=== PATIENT | male | born 1955 | race Caucasian/White ===

== ENCOUNTER 2018-01-14 00:11 | Observation (INO) | payer OTHER ==
--- NOTE | 2018-01-11 16:55 | EKG ---
FACILITY: [facility] PATIENT NAME: EMMA AVINA : [id number] MR: [id number] V: [id number] EXAM DATE: ORDERING PHYSICIAN: CHRISTINE ARRINGTON TECHNOLOGIST: JOAQUIN Blake Reason : PRE-OP Blood Pressure : / mmHG Vent. Rate : 094 BPM Atrial Rate : 094 BPM P-R Int : 162 ms QRS Dur : 090 ms QT Int : 336 ms P-R-T Axes : 083 057 072 degrees QTc Int : 420 ms Sinus rhythm Nonspecific ST findings in the inferior leads Similar to previous Confirmed by MAX LUCAS ([id number]) on 01/12/2018 5:29:23 AM Referred By: LETICIA Confirmed By:MAX LUCAS
[2018-01-14] VITALS (19 sets, daily range): BP systolic 90–116; BP diastolic 51–81
[~2018-01-14] VITALS: Ht 172.7 cm; Wt 102.5 kg
[~2018-01-14 00:11] MED LIST: BUPR300T55 PO; CEPH500T7 PO; CIPR-214 PO; CIPR-344 PO; CLON-303 PO; CPAP; EMPA10TA PO; EZET1TAB53 PO; FEN145 PO; FENO160T11 PO; HYDR-4309 PO; IBUP200C71 PO; LANI SUBQ; MAGN250T26 PO; METF-421 PO; MODA200T6 PO; NICOTINE PATCH1 EACH TD; ONDA4TAB97 PO; SIMV-49 PO; SITA100T PO; TAMS0.4C25 PO; TEST1.25; VALS160T20 PO; VALS1TAB67 PO; [UNRECOGNIZED DRUG - CODE] PO
[2018-01-14] MEDS ORDERED: FAMOTIDINE 20 MG TAB PO ONE (06:45)
[2018-01-14] MEDS ORDERED: NORMOSOL R SOLN(*) 1000 ML BAG 1,000 ML IV PRN (06:45)
[2018-01-14] MEDS ORDERED: LIDOCAINE/SOD BICARB 8.4% SYR ID ONE (06:45)
[2018-01-14] MEDS ORDERED: LEVOFLOXACIN/D5W*500 MG/100 ML 100 ML IVPB ONE (06:45)
[2018-01-14] MEDS ORDERED: MIDAZOLAM 2 MG/2 ML VIAL IVP PRN (06:45)
[2018-01-14 06:50] LABS: PLATELET COUNT, AUTOMATED 190 K/uL (150-450)
[2018-01-14] MEDS ORDERED: MINERAL OIL LIGHT 10 ML VIAL ONE (07:04)
[2018-01-14] MEDS ORDERED: HYDROCORTISONE 1% CR 28.35 GM TP ONE (07:05)
[2018-01-14] MEDS ORDERED: fentaNYL CITR 100 MCG/2 ML AMP ONE (07:26)
[2018-01-14] MEDS ORDERED: ONDANSETRON 4 MG/2 ML VIAL ONE (07:26)
[2018-01-14] MEDS ORDERED: DEXAMETHASONE SOD 4 MG/ML VIAL ONE (07:26)
[2018-01-14] MEDS ORDERED: LIDOCAINE MPF 1% 5 ML VIAL ONE (07:26)
[2018-01-14] MEDS ORDERED: PROPOFOL EMUL(*) 10MG/ML 20 ML 20 ML ONE (07:26)
[2018-01-14] MEDS ORDERED: KETAMINE HCL 200 MG/20 ML MDV ONE (07:33)
[2018-01-14] MEDS ORDERED: INSULIN HUM REG 100 UN/ML 3 ML VIAL SC ONE ×2 (07:35→09:20)
[2018-01-14] MEDS ORDERED: DESFLURANE 240 ML BTL INH ONE (08:13)
[2018-01-14] MEDS ORDERED: GENTAMICIN 80 MG/2 ML VIAL ONE (08:15)
[2018-01-14] MEDS ORDERED: GLYCOPYRROLATE 0.2MG/ML 1 ML INJ ONE (09:20)
[2018-01-14] MEDS ORDERED: BELLADONNA ALK/OPIUM 60MG SUPP PR ONE (09:21)
[2018-01-14] MEDS ORDERED: PROPANTHELINE BROMIDE 15MG TAB PO PRN (09:35)
[2018-01-14] MEDS ORDERED: ONDANSETRON 4 MG/2 ML VIAL IVP PRN (09:35)
[2018-01-14] MEDS ORDERED: FLUSH 10 ML SYR IVP PRN (09:35)
[2018-01-14] MEDS ORDERED: NALOXONE HCL 0.4 MG/ML VIAL IVP PRN (09:35)
[2018-01-14] MEDS ORDERED: ZOLPIDEM TARTRATE 5 MG TAB PO PRN (09:35)
[2018-01-14] MEDS: HYDROmorphone PCA 6 MG/30 ML IV PRN ×2 (11:05→18:49)
[2018-01-14] MEDS: LR(*) 1000 ML BAG 1,000 ML IV PRN ×2 (11:06→19:57)
--- NOTE | 2018-01-14 12:27 | Hospitalist Consultation ---
History of Present Illness Requesting Physician Dr. Veras Reason for Consult Medical Management Chief Complaint s/p Prostate surgery History of Present Illness He was admitted s/p prostate surgery. It was reported the surgery went well and without complication. History Problems: (1) Type 2 diabetes mellitus Status: Chronic (2) Hypertension Status: Chronic (3) Hyperlipidemia Status: Chronic Home Meds Active Scripts Ciprofloxacin Hcl (CIPROFLOXACIN HCL) 500 Mg Tablet, 500 MG PO Q12H, #14 TAB Prov:KEV PETERS SECURITY SERVICES MANAGER 08/06/16 Reported Medications Cephalexin 500 Mg Tab (KEFLEX 500 MG TAB) 500 Mg Tablet, 500 MG PO BID, #28 TAB 01/13/18 Magnesium (MAGNESIUM) 250 Mg Tablet, 250 MG PO QDAY 01/07/18 Insulin Glargine (LANTUS) 100 Unit/Ml Soln, 15 UNIT SUBQ QHS, ML 01/07/18 Empagliflozin (Jardiance) 10 Mg Tablet, 10 MG PO QHS 01/07/18 [Cpap] (CPAP HOME) No Conflict Check 05/12/16 Ibuprofen (IBUPROFEN) 200 Mg Capsule, 1 CAP PO PRN, CAPSULE 05/12/16 TESTOSTERONE 1.62% Topical Gel (ANDROGEL 1.62% Topical Gel) 1.25 Gm Gel.packet 05/12/16 Tamsulosin Hcl (FLOMAX) 0.4 Mg Cap.er.24h, 0.4 MG PO DAILY, CAP 05/12/16 Modafinil (MODAFINIL) 200 Mg Tablet, 200 MG PO DAILY 05/12/16 Nicotine (NICOTINE PATCH) 1 Each Patch.td24, 3.5 MG TD DAILY 07/17/14 Simvastatin (SIMVASTATIN) 20 Mg Tablet, 20 MG PO HS, TAB 07/17/14 Fenofibrate (FENOFIBRATE) 160 Mg Tablet, 160 MG PO QDAY 07/17/14 Metformin Hcl (METFORMIN HCL) 1,000 Mg Tablet, 1 TAB PO BID TAKE ONE TABLET BY MOUTH TWO TIMES A DAY 07/17/14 Clonazepam (CLONAZEPAM) 1 Mg Tablet, 1 MG PO HS, #6 TAB 07/17/14 Sitagliptin Phosphate (JANUVIA) 100 Mg Tablet, 100 MG PO HS 07/17/14 Valsartan/Hydrochlorothiazide (DIOVAN HCT 160-12.5 MG TAB) 1 Each Tablet, 1 EACH PO DAILY 07/17/14 Allergies: Coded Allergies: Penicillins (Verified Allergy, Mild, PASS OUT, 08/06/16) citalopram (Verified Allergy, Mild, 08/06/16) Patient History: FH: heart disease FATHER Hx Smoking: Yes (quit 2007, smoked for 30 yrs 1/2 to 1 ppd) Smoking Status: Former Smoker Caffeine Intake: Soda Caffeine/Cups Per Day: DENIES Hx Alcohol Use: No Hx Substance Use Disorder: No Social Drug Use: Never Review of Systems All Systems Reviewed/Normal: Yes, Except as Noted Exam Vital Signs Vital Signs Date Time Temp Pulse Resp B/P (MAP) Pulse Ox O2 Delivery O2 Flow Rate FiO2 01/14/18 10:30 91 Nasal Cannula 2.0 01/14/18 10:26 98.0 76 12 103/69 (80) General Appearance: Alert, Awake, No Acute Distress, Afebrile Neuro: No Gross deficits Cardiovascular: Regular Rate and Rhythm Respiratory: No Respiratory Distress, Clear to Auscultation Psych: Alert & Oriented X3, Appropriate Mood & Affect Medical Decision Making Data Points Result Diagram: 01/14/18 0640 Assessment and Plan Problems: (1) Prostate disorder Status: Acute Assessment & Plan: s/p prostate surgery. Followed by Dr. Veras. (2) Type 2 diabetes mellitus Status: Chronic Assessment & Plan: He is on chronic treatment with Metformin, Jardiance, Januvia, and Lantus. He will be started on ADA diet, AC/ HS sugars, Lantus and SS Insulin #2. (3) Hypertension Status: Chronic Assessment & Plan: He is on chronic treatment with Valsartan and Hydrochlorothiazide. He will be restarted on Valsartan with hold parameters. (4) Hyperlipidemia Status: Chronic Assessment & Plan: He is on chronic treatment with Simvastatin. Venous Thromboembolism Antithrombotics Is Pt On Any Antithrombotics?: No Prophylaxis Tx Contraindicated Pharmacological Contraindicati: Surgical Contraindication Exam Sepsis Risk: No Definite Risk Problem Qualifiers (1) Hypertension: Hypertension type: essential hypertension Qualified Codes: I10 - Essential ( primary) hypertension ALMA DELIA AMESP January 14, 2018 12:27
[2018-01-14] MEDS ORDERED: GLYCOPYRROLATE 0.2MG/ML 1 ML INJ IVP PRN (13:30)
--- NOTE | 2018-01-14 15:02 | OPERATIVE REPORT 1 ---
EVENT DATE: January 14, 2018 SURGEON: Charbel Veras MD ANESTHESIOLOGIST: Carlitos Rubalcava MD ANESTHESIA: General anesthetic. PREOPERATIVE DIAGNOSES 1. Outlet obstruction of the prostate gland. 2. Chronic cystoprostatitis. POSTOPERATIVE DIAGNOSES 1. Outlet obstruction of the prostate gland. 2. Chronic cystoprostatitis. 3. Calculus prostatitis. 4. Vesicolithiasis. PROCEDURES PERFORMED 1. Cystourethroscopy. 2. Transurethral resection of the prostate. 3. Vaporization of the prostate. 4. Vesical litholapaxy of multiple prostate and bladder calculi, greater than 50. DESCRIPTION OF PROCEDURE Under general anesthetic, the patient was prepped and draped in the extended lithotomy position. The 21 panendoscope was admitted through the urethra into the bladder. Multiple calculi were evident in the ducts of the prostatic urethra, as well as the stones were in the bladder. Trigone and ureteral orifices were normal. No bloody efflux from either in the orifice. No other bladder lesions. Bladder filled under gravity flow. It was measured to a total of approximately 600 mL. On drainage of the bladder, there was no bloody drainage. On re-inspection of the bladder, there were no glomerulations. The resection was begun by resecting the median lobe back to the verumontanum. The tissue was resected down to the circular fibers at the bladder neck circumferentially. Right and left lateral lobe tissue was resected. Apical tissue was resected at the conclusion of the procedure. During the procedure, multiple calculi were unroofed posteriorly, mostly at the left posterior apical area and then the right base of the prostate. All the stones were irrigated into the bladder. The prostate calculi in addition to the bladder calculi were evacuated satisfactorily and sent as a separate specimen. The prostate tissue was sent in a separate container as well. The entire prostate capsule was vaporized. Bleeding appeared to be satisfactorily controlled. Estimated blood loss less than 100 mL. The calculi and the prostate tissue appeared to be evacuated from the bladder. The bladder was filled under gravity flow. On removal of the resectoscope sheath, there was good efflux of irrigation fluid that cut out almost immediately upon withdrawal of the scope. A #22 three-way Fair was placed per urethra into the bladder. Irrigation was satisfactory at conclusion of the procedure. Patient tolerated the procedure satisfactorily and returned to the recovery room in satisfactory condition. This is a 62-year-old white male complaining of recurrent cystoprostatitis. In order to be maintained infection free for any periods of time, he needs to be on low-dose antibiotic, Keflex or other antibiotic. Patient is also on Flomax twice a day to relieve his obstructive uropathy issue. Options were discussed several times with the patient and his in the office in addition to preoperative. Patient opted for cystoscopy and treatment as indicated for relief of his obstructive problem as related to the prostate or otherwise. The option of continued Flomax and suppressive antibiotic therapy was also discussed with the patient versus doing nothing. Patient subsequently had his evaluation and treatment. See operative note for details. Patient will be ready for discharge home in the a.m. is all is going well, to force fluids 2 L per day. Activities are restricted to careful ambulation. He is to continue his usual medications as prescribed by Dr. Conner and/or the hospitalists. Patient will be discharged home on Cipro, Pepcid, Pyridium, Colace, and [employer] therapy. Plan followup in the office and catheter removal probably on Thursday. A copy of the instructions will be given to the patient. MAYANK
[2018-01-14] MEDS: GENTAMICIN/NS 80 MG/100 ML PB 100 ML IVPB SCH ×2 (16:49→23:50)
[2018-01-14] MEDS: INSULIN HUM LISPRO 100 UN/ML 3 ML VIAL SUBQ PRN ×2 (17:45→21:10)
[2018-01-14] MEDS ORDERED: BELLADONNA ALK/OPIUM 60MG SUPP PR PRN (21:00)
[2018-01-14] MEDS: VALSARTAN 80 MG TAB PO SCH (21:00)
[2018-01-14] MEDS ORDERED: SIMVASTATIN 20 MG TAB PO SCH (21:00)
[2018-01-14] MEDS ORDERED: INSULIN GLARGINE 100 U/ML 3 ML PEN SUBQ SCH (21:00)
[2018-01-14] MEDS: DOCUSATE SODIUM 100 MG CAP PO SCH (21:08)
[2018-01-14] MEDS: NEOMYCIN/POLYMYX/BACITR OINT 1 PACKET TP SCH (21:08)
[2018-01-14] MEDS: FAMOTIDINE 20 MG TAB PO SCH (21:08)
[2018-01-15] MEDS: LR(*) 1000 ML BAG 1,000 ML IV PRN (05:05)
[2018-01-15 05:15] VITALS: BP 108/73
[2018-01-15 07:04] VITALS: BP 107/74
[2018-01-15] MEDS: GENTAMICIN/NS 80 MG/100 ML PB 100 ML IVPB SCH (07:18)
[2018-01-15] MEDS: INSULIN HUM LISPRO 100 UN/ML 3 ML VIAL SUBQ PRN (07:19)
[2018-01-15] MEDS ORDERED: LEVOFLOXACIN 500 MG TAB PO SCH (08:00)
[2018-01-15] MEDS ORDERED: metFORMIN HCL 500 MG TAB PO SCH (08:00)
[2018-01-15] MEDS: FAMOTIDINE 20 MG TAB PO SCH (08:32)
[2018-01-15] MEDS: VALSARTAN 80 MG TAB PO SCH (08:32)
[2018-01-15] MEDS: DOCUSATE SODIUM 100 MG CAP PO SCH (08:33)
[2018-01-15] MEDS: NEOMYCIN/POLYMYX/BACITR OINT 1 PACKET TP SCH (08:33)
[2018-01-15] MEDS ORDERED: TAMSULOSIN HCL 0.4 MG CAP PO SCH (09:00)
--- NOTE | 2018-01-15 10:31 | Hospitalist Progress Note ---
Subjective Progress Notes Subjective He had no acute events overnight. He reports he is ready to go home. Patient Complains of: Cardiovascular: No: Chest Pain Respiratory: No: Shortness of Breath Physical Exam Vital Signs Date Time Temp Pulse Resp B/P (MAP) Pulse Ox O2 Delivery O2 Flow Rate FiO2 01/15/18 09:12 16 94 Nasal Cannula 2.0 01/15/18 07:04 98.2 61 107/74 (85) Intake and Output 01/16/18 01:00 Intake Total 4190 ml Output Total 4750 ml Balance -560 ml Intake Oral 1340 ml Other 2850 ml Output Urine Total 1900 ml Other 2850 ml General Appearance: Alert, Awake, No Acute Distress, Afebrile Neuro: No Gross deficits Cardiovascular: Regular Rate and Rhythm Respiratory: No Respiratory Distress, Clear to Auscultation Psych: Alert & Oriented X3, Appropriate Mood & Affect Result Diagram: 01/14/18 0640 Assessment and Plan Problems: (1) Prostate disorder Status: Acute Assessment & Plan: s/p prostate surgery. Followed by Dr. Veras. (2) Type 2 diabetes mellitus Status: Chronic Assessment & Plan: He is on chronic treatment with Metformin, Jardiance, Januvia, and Lantus. (3) Hypertension Status: Chronic Assessment & Plan: He is on chronic treatment with Valsartan and Hydrochlorothiazide. He will check his blood pressure at home and resume medications if his systolic is above 130. (4) Hyperlipidemia Status: Chronic Assessment & Plan: He is on chronic treatment with Simvastatin. (5) Hypoxia Status: Acute Assessment & Plan: Recommended patient to wear oxygen 24 hours daily. He verbalized understanding for the need for oxygen. He reports he has concentrator and portable tanks through [email or web address] already at home. Exam Sepsis Risk: No Definite Risk Problem Qualifiers (1) Hypertension: Hypertension type: essential hypertension Qualified Codes: I10 - Essential ( primary) hypertension ALMA DELIA AMES January 15, 2018 10:31
[2018-01-15] MEDS ORDERED: HYDR-4308 PO (10:33)
[2018-01-15] MEDS ORDERED: FAMO20TA28 PO (10:35)
[2018-01-15] MEDS ORDERED: PHEN200T32 PO (10:46)
[2018-01-15] MEDS ORDERED: DOCU-416 PO (10:46)
== END 2018-01-15 10:48 | disposition home or self-care (01) ==
LOC: OR 00:11 → MED 10:49
DX: N40.0 Benign prostatic hyperplasia without lower urinary tract symptoms (principal); E11.9 Type 2 diabetes mellitus without complications; G47.33 Obstructive sleep apnea (adult) (pediatric); N42.0 Calculus of prostate
CPT/HCPCS: 36416; 52317; 52648; 81001; 82365; 82948; 85025; 87088; 88300; 88305; 93005; 96372; A4346; G0378; J1100; J1170; J1580; J1815; J1956; J2001; J2250; J2405; J2704; J3010; J3490; J7120

== ENCOUNTER 2018-01-17 21:30 | Inpatient (IN) | payer OTHER ==
[~2018-01-17] VITALS: Ht 172.7 cm; Wt 103.9 kg
[~2018-01-17 21:30] MED LIST changes: +DOCU-416 PO; +FAMO20TA28 PO; +HYDR-4308 PO; +PHEN200T32 PO
[2018-01-17] MEDS ORDERED: NS(*) 0.9% 1000 ML BAG 1,000 ML IV ONE (21:32)
--- NOTE | 2018-01-17 21:32 | ER Report ---
History and Physical Time Seen By MD: 21:31 HPI/ROS CHIEF COMPLAINT: Fever HISTORY OF PRESENT ILLNESS: 62-year-old male status post prostate surgery . He was admitted overnight and discharged home on 01/15/18. Patient's been running low-grade fevers up to 100 at home. He has been on Keflex. He contacted Dr. Eda mendoza and was sent in with a fever for further evaluation. Dr. Veras contacted the ER attending physician in notified him that the patient will be coming in for evaluation for postoperative fever and that he would likely consider admission and IV Rocephin and gentamicin for infection control. REVIEW OF SYSTEMS: Respiratory: No cough, no dyspnea. Cardiovascular: No chest pain, no palpitations. Gastrointestinal: No vomiting, no abdominal pain. Musculoskeletal: No back pain. Allergies: Coded Allergies: Penicillins (Verified Allergy, Mild, PASS OUT, 08/06/16) citalopram (Verified Allergy, Mild, 08/06/16) Home Meds Active Scripts Ciprofloxacin Hcl (CIPROFLOXACIN HCL) 500 Mg Tablet, 500 MG PO Q12H, #14 TAB Prov:FRANKEV SENIOR BACKUP ADMINISTRATOR 08/06/16 Reported Medications Phenazopyridine Hcl (PHENAZOPYRIDINE HCL) 200 Mg Tablet, 200 MG PO BID, TAB 01/17/18 Insulin Glargine 100 Un/Ml Pen (LANTUS SOLOSTAR PEN) 100 Unit/1 Ml Insuln.pen, 15 UNIT SQ QDAY, ML 01/17/18 Docusate Sodium (COLACE) 100 Mg Capsule, 100 MG PO BID, #30 CAPSULE 01/15/18 Famotidine (PEPCID) 20 Mg Tablet, 20 MG PO BID, #20 TAB 01/15/18 Hydrocodone Bit/Acetaminophen (NORCO 7.5-325 TABLET) 1 Each Tablet, 1 EACH PO Q4 -6H Y for PAIN, #30 01/15/18 Magnesium (MAGNESIUM) 250 Mg Tablet, 250 MG PO QDAY 01/07/18 Empagliflozin (Jardiance) 10 Mg Tablet, 10 MG PO QDAY 01/07/18 [Cpap] (CPAP HOME) No Conflict Check 05/12/16 Ibuprofen (IBUPROFEN) 200 Mg Capsule, 1 CAP PO PRN, CAPSULE 05/12/16 TESTOSTERONE 1.62% Topical Gel (ANDROGEL 1.62% Topical Gel) 1.25 Gm Gel.packet 05/12/16 Tamsulosin Hcl (FLOMAX) 0.4 Mg Cap.er.24h, 0.4 MG PO DAILY, CAP 05/12/16 Modafinil (MODAFINIL) 200 Mg Tablet, 200 MG PO DAILY 05/12/16 Nicotine (NICOTINE PATCH) 1 Each Patch.td24, 3.5 MG TD DAILY 07/17/14 Simvastatin (SIMVASTATIN) 20 Mg Tablet, 20 MG PO HS, TAB 07/17/14 Fenofibrate (FENOFIBRATE) 160 Mg Tablet, 160 MG PO QDAY 07/17/14 Metformin Hcl (METFORMIN HCL) 1,000 Mg Tablet, 1 TAB PO BID TAKE ONE TABLET BY MOUTH TWO TIMES A DAY 07/17/14 Clonazepam (CLONAZEPAM) 1 Mg Tablet, 1 MG PO HS, #6 TAB 07/17/14 Sitagliptin Phosphate (JANUVIA) 100 Mg Tablet, 100 MG PO HS 07/17/14 Valsartan/Hydrochlorothiazide (DIOVAN HCT 160-12.5 MG TAB) 1 Each Tablet, 1 EACH PO DAILY 07/17/14 Discontinued Reported Medications Phenazopyridine Hcl (PHENAZOPYRIDINE HCL) 200 Mg Tablet, 200 MG PO TID Y for SPASMS, #20 TAB 01/15/18 Cephalexin 500 Mg Tab (KEFLEX 500 MG TAB) 500 Mg Tablet, 500 MG PO BID, #28 TAB 01/13/18 Insulin Glargine (LANTUS) 100 Unit/Ml Soln, 15 UNIT SUBQ QHS, ML 01/07/18 Past Medical/Surgical History Type II diabetes, BPH, hyperlipidemia, hypertension Reviewed Nurses Notes: Yes Old Medical Records Reviewed: Yes Hx Smoking: Yes (quit 2007, smoked for 30 yrs 1/2 to 1 ppd) Smoking Status: Former Smoker Hx Substance Use Disorder: No Hx Alcohol Use: No Constitutional Vital Sign - Last 24 Hours 01/17/18 01/17/18 01/17/18 01/17/18 21:34 21:35 21:35 21:38 Temp 98.8 99.4 Pulse 74 Resp 16 B/P (MAP) 152/86 (108) 152/86 Pulse Ox 92 O2 Delivery Room Air O2 Flow Rate 3.0 01/17/18 01/17/18 01/17/18 01/17/18 21:45 21:51 22:00 22:15 Pulse 79 76 73 B/P (MAP) 137/83 (101) Pulse Ox 94 93 93 01/17/18 01/17/18 01/17/18 01/17/18 22:20 22:45 23:00 23:05 Pulse 71 66 B/P (MAP) 133/78 (96) 136/75 (95) Pulse Ox 93 93 01/17/18 01/17/18 01/17/18 01/17/18 23:10 23:25 23:33 23:40 Pulse 67 68 64 B/P (MAP) 127/76 (93) Pulse Ox 94 94 93 Physical Exam Vital signs stable, temp 99.4, pulse ox on 2 L stable General Appearance: The patient is alert, has no immediate need for airway protection and no current signs of toxicity. Slightly pale appearing, skin warm and dry HEENT: Pupils equal and round no injection. Oropharynx without redness or exudate, mucous. Membranes are moist Respiratory: Chest is non tender, lungs are clear to auscultation. Cardiac: regular rate and rhythm Gastrointestinal: Abdomen is soft and non tender, no masses, bowel sounds normal. Musculoskeletal: Neck: Neck is supple and non tender. Extremities have full range of motion and are non tender. Skin: No rashes or lesions. DIFFERENTIAL DIAGNOSIS: After history and physical exam differential diagnosis was considered for adult fever including but not limited to viral syndromes including influenza, urinary tract infection, postoperative infection, pneumonia and sepsis. Medical Decision Making Data Points Result Diagram: 01/17/18214801/17/182148 Laboratory Hematology Test 01/17/18 21:49 01/17/18 22:50 Red Blood Count 4.90 M/uL (4.00-5.60) Mean Corpuscular Volume 92.8 fL (80.0-96.0) Mean Corpuscular Hemoglobin 32.0 pg (26.0-33.0) Mean Corpuscular Hemoglobin Concent 34.5 g/dL (32.0-36.0) Red Cell Distribution Width 13.6 % (11.5-14.5) Mean Platelet Volume 8.2 fL (7.2-11.1) Neutrophils (%) (Auto) 71.7 % (39.4-72.5) Lymphocytes (%) (Auto) 10.9 % (17.6-49.6) Monocytes (%) (Auto) 10.3 % (4.1-12.4) Eosinophils (%) (Auto) 6.7 % (0.4-6.7) Basophils (%) (Auto) 0.4 % (0.3-1.4) Nucleated RBC Relative Count (auto) 0.1 /100WBC Neutrophils # (Auto) 8.7 K/uL (2.0-7.4) Lymphocytes # (Auto) 1.3 K/uL (1.3-3.6) Monocytes # (Auto) 1.2 K/uL (0.3-1.0) Eosinophils # (Auto) 0.8 K/uL (0.0-0.5) Basophils # (Auto) 0.0 K/uL (0.0-0.1) Nucleated RBC Absolute Count (auto) 0.01 K/uL Sodium Level 140 mmol/L (137-145) Potassium Level 3.9 mmol/L (3.5-5.0) Chloride Level 100 mmol/L (98-107) Carbon Dioxide Level 25 mmol/L (22-30) Blood Urea Nitrogen 21 mg/dl (9-21) Creatinine 1.70 mg/dl (0.66-1.25) Glomerular Filtration Rate Calc 41.0 Random Glucose 157 mg/dl (75-110) Lactate 1.2 mmol/L (0.7-2.1) Calcium Level 10.1 mg/dl (8.4-10.2) Total Bilirubin 0.8 mg/dl (0.2-1.3) Aspartate Amino Transf (AST/SGOT) 33 U/L (0-35) Alanine Aminotransferase (ALT/SGPT) 35 U/L (0-56) Alkaline Phosphatase 58 U/L (0-126) C-Reactive Protein 5.2 mg/dl (<1.0) Total Protein 7.0 gm/dl (6.3-8.2) Albumin 4.2 g/dl (3.5-5.0) Urine Color Apison Urine Clarity Cloudy Urine pH Color interference Urine Specific Hudson Color interference Urine Protein Color interference Urine Glucose (UA) Color interference Urine Ketones Color interference Urine Blood Color interference Urine Nitrite Color interference Urine Bilirubin Color interference Urine Urobilinogen Color interference Urine Leukocyte Esterase Color interference Urine RBC 250 /HPF (0-2/HPF) Urine WBC 283 /HPF (0-5/HPF) Urine WBC Clumps Few /HPF Urine Squamous Epithelial Cells Few /LPF (</=FEW) Urine Amorphous Crystals Few /HPF Urine Bacteria Moderate /HPF (NONE-FEW) Urine Mucus None /HPF (NONE-FEW) Chemistry Test 01/17/18 21:49 01/17/18 22:50 White Blood Count 12.1 k/uL (4.5-11.0) Red Blood Count 4.90 M/uL (4.00-5.60) Hemoglobin 15.7 g/dL (14.0-18.0) Hematocrit 45.4 % (42.0-52.0) Mean Corpuscular Volume 92.8 fL (80.0-96.0) Mean Corpuscular Hemoglobin 32.0 pg (26.0-33.0) Mean Corpuscular Hemoglobin Concent 34.5 g/dL (32.0-36.0) Red Cell Distribution Width 13.6 % (11.5-14.5) Platelet Count 183 K/uL (150-450) Mean Platelet Volume 8.2 fL (7.2-11.1) Neutrophils (%) (Auto) 71.7 % (39.4-72.5) Lymphocytes (%) (Auto) 10.9 % (17.6-49.6) Monocytes (%) (Auto) 10.3 % (4.1-12.4) Eosinophils (%) (Auto) 6.7 % (0.4-6.7) Basophils (%) (Auto) 0.4 % (0.3-1.4) Nucleated RBC Relative Count (auto) 0.1 /100WBC Neutrophils # (Auto) 8.7 K/uL (2.0-7.4) Lymphocytes # (Auto) 1.3 K/uL (1.3-3.6) Monocytes # (Auto) 1.2 K/uL (0.3-1.0) Eosinophils # (Auto) 0.8 K/uL (0.0-0.5) Basophils # (Auto) 0.0 K/uL (0.0-0.1) Nucleated RBC Absolute Count (auto) 0.01 K/uL Glomerular Filtration Rate Calc 41.0 Lactate 1.2 mmol/L (0.7-2.1) Calcium Level 10.1 mg/dl (8.4-10.2) Total Bilirubin 0.8 mg/dl (0.2-1.3) Aspartate Amino Transf (AST/SGOT) 33 U/L (0-35) Alanine Aminotransferase (ALT/SGPT) 35 U/L (0-56) Alkaline Phosphatase 58 U/L (0-126) C-Reactive Protein 5.2 mg/dl (<1.0) Total Protein 7.0 gm/dl (6.3-8.2) Albumin 4.2 g/dl (3.5-5.0) Urine Color Apison Urine Clarity Cloudy Urine pH Color interference Urine Specific Hudson Color interference Urine Protein Color interference Urine Glucose (UA) Color interference Urine Ketones Color interference Urine Blood Color interference Urine Nitrite Color interference Urine Bilirubin Color interference Urine Urobilinogen Color interference Urine Leukocyte Esterase Color interference Urine RBC 250 /HPF (0-2/HPF) Urine WBC 283 /HPF (0-5/HPF) Urine WBC Clumps Few /HPF Urine Squamous Epithelial Cells Few /LPF (</=FEW) Urine Amorphous Crystals Few /HPF Urine Bacteria Moderate /HPF (NONE-FEW) Urine Mucus None /HPF (NONE-FEW) Urinalysis Test 01/17/18 22:50 Urine Color Apison Urine Clarity Cloudy Urine pH Color interference Urine Specific Hudson Color interference Urine Protein Color interference Urine Glucose (UA) Color interference Urine Ketones Color interference Urine Blood Color interference Urine Nitrite Color interference Urine Bilirubin Color interference Urine Urobilinogen Color interference Urine Leukocyte Esterase Color interference Urine RBC 250 /HPF (0-2/HPF) Urine WBC 283 /HPF (0-5/HPF) Urine WBC Clumps Few /HPF Urine Squamous Epithelial Cells Few /LPF (</=FEW) Urine Amorphous Crystals Few /HPF Urine Bacteria Moderate /HPF (NONE-FEW) Urine Mucus None /HPF (NONE-FEW) Microbiology Microbiology Date/Time Source Procedure Growth Status 01/17/18 22:50 Blood Peripheral Draw Blood Culture - Preliminary NO GROWTH AFTER 1 DAY, REINCUBATED Resulted 01/17/18 21:49 Blood Peripheral Draw Blood Culture - Preliminary NO GROWTH AFTER 1 DAY, REINCUBATED Resulted ED Course/Re-evaluation Clinical Indication for ER IV: IV Access ED Course Patient was admitted to an examination room. H&P was done. The differential diagnoses was considered. Patient feeling fatigued with low-grade fevers and chills for 2 days. Patient notes fever to 100.0 at home. Patient was sent in by Dr. Veras. Patient was pancultured. A chest x-ray was clear. His white blood cell counts only 12,000. Differential shows 72 segs, no bands. 01/17/2018 11:51:29 pm case was discussed with Dr. Veras on-call urologist, who advises admit for IV antibiotics Rocephin 2 g IV every 24 and gentamicin 80 mg IV every 8. He advised hospitalist be involved for management of diabetes and other medical issues. Decision to Disposition Date: January 17, 2018 Decision to Disposition Time: 23:57 Depart Departure Latest Vital Signs Vital Signs Date Time Temp Pulse Resp B/P (MAP) Pulse Ox O2 Delivery O2 Flow Rate FiO2 01/17/18 23:40 64 93 01/17/18 23:33 127/76 (93) 01/17/18 21:38 99.4 01/17/18 21:35 16 Room Air 01/17/18 21:35 3.0 Impression: Primary Impression: Postoperative fever Additional Impressions: Type II diabetes mellitus Hypertension Sleep apnea Condition: Improved Disposition: Admitted from ER Referrals: STEPHANIE RUDOLPH DO (PCP) Problem Qualifiers Additional Impressions: Type II diabetes mellitus Diabetes mellitus bed bug exterminator insulin use: with halfway use Diabetes mellitus complication status: without complication Qualified Codes: E11.9 - Type 2 diabetes mellitus without complications; Z79.4 - bed bug exterminator (current) use of insulin Hypertension Hypertension type: essential hypertension Qualified Codes: I10 - Essential ( primary) hypertension Sleep apnea Sleep apnea type: unspecified type Qualified Codes: G47.30 - Sleep apnea, unspecified EVELYN WHITFIELD DO January 17, 2018 21:32
[2018-01-17] MEDS ORDERED: INSU100I30 SQ (22:03)
[2018-01-17 22:04] LABS: PLATELET COUNT, AUTOMATED 183 K/uL (150-450)
[2018-01-17] MEDS ORDERED: PHEN200T32 PO (22:10)
--- NOTE | 2018-01-17 23:00 | RADIOLOGY IMAGING REPORT ---
FACILITY: [facility] PATIENT NAME: Ambrose Fagan : 1955 MR: [id number] V: [id number] EXAM DATE: ORDERING PHYSICIAN: EVELYN WHITFIELD TECHNOLOGIST: Location: [facility] [place] Patient: Ambrose Fagan : 1955 Visit/Account:[id number] Date of Sevice: 01/17/2018 CHEST SINGLE AP 01/17/2018 21:32 hours. HISTORY: Fever. Prostate surgery 01/14/2018. Former smoker. COMPARISON: 08/06/2016 and studies dating to 06/09/2008. TECHNIQUE: Portable AP view of the chest. FINDINGS: Tubes/lines/hardware: None. Pulmonary: Right lung is clear. There is subsegmental left basilar atelectasis or scarring, unchanged . There is no pneumothorax or pleural effusion. Cardiomediastinal: Cardiac and mediastinal silhouettes are within normal limits. Bones/soft tissues: No acute osseous abnormality. The visible abdomen is normal. IMPRESSION: 1. Stable chest without acute process. Report Dictated By: Isabel Teague at 01/17/2018 10:55 PM Report E-Signed By: Isabel Teague at 01/17/2018 10:56 PM WSN:[id number]
[2018-01-17] MEDS ORDERED: cefTRIAXone(*) 2 GM VIAL 2 GM in NS(*) 0.9% 100 ML ADDVANT BAG 100 ML IVPB ONE (23:45)
[2018-01-17] MEDS ORDERED: cefTRIAXone 2 GM VIAL ONE (23:49)
[2018-01-17] MEDS ORDERED: GENTAMICIN(*) 80 MG/2 ML VIAL 160 MG in NS(*) 0.9% 100 ML BAG 100 ML IVPB ONE (23:55)
[2018-01-17] MEDS ORDERED: NS(*) 0.9% 100 ML ADDVANT BAG 0 ML ONE (23:56)
[2018-01-18] VITALS (7 sets, daily range): BP systolic 104–147; BP diastolic 67–86; Ht 172.7 cm; Wt 103.9 kg
[2018-01-18] MEDS ORDERED: FLUSH 10 ML SYR IVP PRN (01:10)
[2018-01-18] MEDS ORDERED: [UNRECOGNIZED DRUG - OTHER] IVPB SCH (02:00)
[2018-01-18] MEDS ORDERED: GENTAMICIN IVPB SCH (02:00)
[2018-01-18] MEDS ORDERED: GENTAMICIN 80 MG/2 ML VIAL ONE (02:23)
[2018-01-18] MEDS ORDERED: NS(*) 0.9% 100 ML BAG 100 ML ONE (02:23)
[2018-01-18] MEDS ORDERED: NS(*) 0.9% 500 ML BAG 500 ML ONE (02:28)
--- NOTE | 2018-01-18 05:55 | Hospitalist Progress Note ---
Subjective Progress Notes Subjective Patient known to the Hospitalist Service from his recent admission following his recent TURP. Reviewed PMHx (type 2 DM, SHLOMO) and his medications. Physical Exam Vital Signs Date Time Temp Pulse Resp B/P (MAP) Pulse Ox O2 Delivery O2 Flow Rate FiO2 01/18/18 02:39 98.9 68 16 110/67 (81) 94 Nasal Cannula 2.0 General Appearance: Alert, Awake Cardiovascular: Regular Rate and Rhythm Respiratory: Clear to Auscultation Result Diagram: 01/17/18214801/17/182148 Assessment and Plan Problems: (1) Type II diabetes mellitus Status: Chronic Assessment & Plan: Will continue his usual regimen of Lantus, metformin, Januvia, and Jardiance. Place on ADA diet. Watch glucoses and use SSI as needed. (2) Sleep apnea Status: Chronic Assessment & Plan: Will continue his CPAP. Exam Sepsis Risk: No Definite Risk Problem Qualifiers (1) Type II diabetes mellitus: Diabetes mellitus manager terminal insulin use: with manager terminal use Diabetes mellitus complication status: without complication Qualified Codes: E11.9 - Type 2 diabetes mellitus without complications; Z79.4 - extermination supervisor (current) use of insulin (2) Sleep apnea: Sleep apnea type: unspecified type Qualified Codes: G47.30 - Sleep apnea, unspecified MAX LUCAS MD January 18, 2018 05:55
[2018-01-18] MEDS: MODAFINIL 100 MG TAB PO SCH (09:50)
[2018-01-18] MEDS: HYDROCHLOROTHIAZIDE 25 MG TAB PO SCH (09:50)
[2018-01-18] MEDS: metFORMIN HCL 500 MG TAB PO SCH ×2 (09:50→16:49)
[2018-01-18] MEDS: VALSARTAN 80 MG TAB PO SCH (09:50)
[2018-01-18] MEDS: INSULIN GLARGINE 100 U/ML 3 ML PEN SQ SCH (09:52)
[2018-01-18] MEDS: INSULIN HUM LISPRO 100 UN/ML 3 ML VIAL SUBQ PRN ×3 (12:09→20:47)
[2018-01-18] MEDS: GENTAMICIN IVPB SCH (14:46)
[2018-01-18] MEDS: NS 0.9% IVPB SCH (14:46)
[2018-01-18] MEDS: PHENAZOPYRIDINE 200 MG TAB PO PRN (18:43)
[2018-01-18] MEDS: SIMVASTATIN 20 MG TAB PO SCH (20:46)
[2018-01-18] MEDS: FAMOTIDINE 20 MG TAB PO SCH (20:46)
[2018-01-18] MEDS: DOCUSATE SODIUM 100 MG CAP PO SCH (20:46)
[2018-01-18] MEDS ORDERED: CEFTRIAXONE IVPB SCH (23:00)
[2018-01-18] MEDS ORDERED: D5W IVPB SCH (23:00)
[2018-01-18] MEDS: KETOROLAC TROM 10MG TAB PO PRN (23:18)
[2018-01-18] MEDS: cefTRIAXone(*) 2 GM VIAL 2 GM in NS(*) 0.9% 100 ML ADDVANT BAG 100 ML IVPB SCH (23:25)
[2018-01-19] MEDS: GENTAMICIN IVPB SCH ×2 (02:01→14:26)
[2018-01-19] MEDS: NS 0.9% IVPB SCH ×2 (02:01→14:26)
[2018-01-19 03:21] VITALS: BP 90/56
[2018-01-19 07:52] VITALS: BP 106/66
--- NOTE | 2018-01-19 08:59 | Hospitalist Progress Note ---
Subjective Progress Notes Subjective He has no complaints this morning. He had no acute events overnight. Patient Complains of: Cardiovascular: No: Chest Pain Respiratory: No: Shortness of Breath Physical Exam Vital Signs Date Time Temp Pulse Resp B/P (MAP) Pulse Ox O2 Delivery O2 Flow Rate FiO2 01/19/18 07:52 98.7 58 14 106/66 (79) 91 CPAP 3.0 General Appearance: Alert, Awake, No Acute Distress, Afebrile Neuro: No Gross deficits Cardiovascular: Regular Rate and Rhythm Respiratory: No Respiratory Distress, Clear to Auscultation GI: Soft and Non-Tender Psych: Alert & Oriented X3, Appropriate Mood & Affect Result Diagram: 01/17/18214801/17/182148 Assessment and Plan Problems: (1) Type II diabetes mellitus Status: Chronic Assessment & Plan: Will continue his usual regimen of Lantus, metformin, Januvia, and Jardiance. Place on ADA diet. Watch glucoses and use SSI as needed. (2) Sleep apnea Status: Chronic Assessment & Plan: Will continue his CPAP. Exam Sepsis Risk: No Definite Risk Problem Qualifiers (1) Type II diabetes mellitus: Diabetes mellitus watermaster insulin use: with watermaster use Diabetes mellitus complication status: without complication Qualified Codes: E11.9 - Type 2 diabetes mellitus without complications; Z79.4 - middle or intermediate school principal (current) use of insulin (2) Sleep apnea: Sleep apnea type: unspecified type Qualified Codes: G47.30 - Sleep apnea, unspecified ALMA DELIA AMES GOLF CADDIE January 19, 2018 08:59
[2018-01-19] MEDS: MODAFINIL 100 MG TAB PO SCH ×2 (09:00→09:15)
[2018-01-19] MEDS: FAMOTIDINE 20 MG TAB PO SCH ×2 (09:13→21:28)
[2018-01-19] MEDS: metFORMIN HCL 500 MG TAB PO SCH ×2 (09:15→17:18)
[2018-01-19] MEDS: DOCUSATE SODIUM 100 MG CAP PO SCH ×2 (09:15→21:28)
[2018-01-19] MEDS: VALSARTAN 80 MG TAB PO SCH (09:15)
[2018-01-19] MEDS: HYDROCHLOROTHIAZIDE 25 MG TAB PO SCH (09:15)
[2018-01-19] MEDS: INSULIN GLARGINE 100 U/ML 3 ML PEN SQ SCH (09:16)
[2018-01-19] MEDS: INSULIN HUM LISPRO 100 UN/ML 3 ML VIAL SUBQ PRN ×4 (09:17→21:28)
[2018-01-19 14:29] VITALS: BP 145/79
[2018-01-19] MEDS: PHENAZOPYRIDINE 200 MG TAB PO PRN (17:18)
[2018-01-19] MEDS: KETOROLAC TROM 10MG TAB PO PRN (18:18)
[2018-01-19 18:41] VITALS: BP 149/82
[2018-01-19] MEDS: SIMVASTATIN 20 MG TAB PO SCH (21:28)
[2018-01-19 23:41] VITALS: BP 128/85
[2018-01-19] MEDS: cefTRIAXone(*) 2 GM VIAL 2 GM in NS(*) 0.9% 100 ML ADDVANT BAG 100 ML IVPB SCH (23:43)
[2018-01-20] MEDS: NS 0.9% IVPB SCH (02:20)
[2018-01-20] MEDS: GENTAMICIN IVPB SCH (02:20)
[2018-01-20 02:23] VITALS: BP 105/58
[2018-01-20] MEDS ORDERED: SULF-198 PO (06:55)
[2018-01-20 07:15] VITALS: BP 115/72
[2018-01-20] MEDS: FAMOTIDINE 20 MG TAB PO SCH (08:31)
[2018-01-20] MEDS: DOCUSATE SODIUM 100 MG CAP PO SCH (08:31)
[2018-01-20] MEDS: metFORMIN HCL 500 MG TAB PO SCH (08:31)
[2018-01-20] MEDS: MODAFINIL 100 MG TAB PO SCH (08:32)
[2018-01-20] MEDS: VALSARTAN 80 MG TAB PO SCH (08:32)
[2018-01-20] MEDS: HYDROCHLOROTHIAZIDE 25 MG TAB PO SCH (08:32)
[2018-01-20] MEDS: INSULIN GLARGINE 100 U/ML 3 ML PEN SQ SCH (08:32)
--- NOTE | 2018-01-20 08:45 | Hospitalist Progress Note ---
Subjective Progress Notes Subjective He has no concerns this morning. He reports improvement in urinary symptoms. Patient Complains of: Cardiovascular: No: Chest Pain Respiratory: No: Shortness of Breath Physical Exam Vital Signs Date Time Temp Pulse Resp B/P (MAP) Pulse Ox O2 Delivery O2 Flow Rate FiO2 01/20/18 07:15 98.4 49 18 115/72 (86) 88 Room Air 01/19/18 07:52 3.0 General Appearance: Alert, Awake, No Acute Distress, Afebrile Neuro: No Gross deficits Cardiovascular: Regular Rate and Rhythm Respiratory: No Respiratory Distress, Clear to Auscultation GI: Soft and Non-Tender Psych: Alert & Oriented X3, Appropriate Mood & Affect Result Diagram: 01/17/18214801/17/182148 Assessment and Plan Problems: (1) Type II diabetes mellitus Status: Chronic Assessment & Plan: Will continue his usual regimen of Lantus, metformin, Januvia, and Jardiance. (2) Sleep apnea Status: Chronic Assessment & Plan: Will continue his CPAP. Exam Sepsis Risk: No Definite Risk Problem Qualifiers (1) Type II diabetes mellitus: Diabetes mellitus fci insulin use: with intermediate accountant use Diabetes mellitus complication status: without complication Qualified Codes: E11.9 - Type 2 diabetes mellitus without complications; Z79.4 - petroleum terminal plant operator (current) use of insulin (2) Sleep apnea: Sleep apnea type: unspecified type Qualified Codes: G47.30 - Sleep apnea, unspecified ALMA DELIA AMES [employer]ACH[employer] ROUTER January 20, 2018 08:45
--- NOTE | 2018-01-20 16:39 | DISCHARGE SUMMARY ---
ADMISSION DIAGNOSES 1. Acute cysto-prostatitis. 2. Possible urosepsis. 3. Status postoperative transurethral resection of the prostate and vaporization of the prostate. DISCHARGE DIAGNOSES 1. Acute cysto-prostatitis. 2. Possible urosepsis. 3. Status postoperative transurethral resection of the prostate and vaporization of the prostate. 4. No clear evidence of urosepsis based on blood cultures at this time. Urine culture shows significant growth. Sensitivities are pending. CONDITION ON DISCHARGE Improved. SUMMARY This is a 62-year-old white male complaining of outlet obstruction of the prostate gland, history of acute and chronic cysto-prostatitis resistant to several antibiotics. I was unable to keep patient free of infection off antibiotics, so he has been maintained on suppressive cephalexin therapy for several months prior to his hopefully definitive treatment with transurethral resection of the infected glands, etc. Patient subsequently had procedure this past and did well at that time. He was instructed on Fair removal Thursday a.m. and that was accomplished. He has been voiding satisfactorily. On Thursday, his called and said he was chilling and had fever. I suspected an infection resistant to the oral antibiotic Cipro that he was discharged on. That appears to be confirmed. Sensitivities are currently pending. Currently patient is significantly improved. It took more than 24-48 hours to resolve his fever and chills. The Rocephin and gentamicin therapy appeared to be resolving the issue. Patient will be discharged home today if we have sensitivities for an oral agent to treat him as an outpatient. If there is no oral agent available, he will need IV antibiotic therapy as an outpatient. The hospitalist and Dr. Conner have been regulating his diabetes. See their notes for details. Patient is discharged home on his original orders. He is to stop his Cipro therapy. Planned followup this coming Thursday in the office. MAYANK
== END 2018-01-20 10:34 | disposition home or self-care (01) | DRG 728 ==
LOC: ER 21:37 → MED 23:46
PROC: 5A09357 Assistance with Respiratory Ventilation, Less than 24 Consecutive Hours, Continuous Positive Airway Pressure (ICD-10-PCS; principal; 2018-01-18)
DX: N41.0 Acute prostatitis (principal); E11.9 Type 2 diabetes mellitus without complications; N40.0 Benign prostatic hyperplasia without lower urinary tract symptoms; E78.5 Hyperlipidemia, unspecified; I10 Essential (primary) hypertension; G47.30 Sleep apnea, unspecified; Z87.891 Personal history of nicotine dependence; Z88.0 Allergy status to penicillin; Z79.4 Long term (current) use of insulin; Z88.8 Allergy status to other drugs, medicaments and biological substances
CPT/HCPCS: 36416; 71045; 81001; 82040; 82247; 82310; 82374; 82435; 82565; 82947; 82948; 83605; 84075; 84132; 84155; 84295; 84450; 84460; 84520; 85025; 86140; 87040; 87077; 87088; 87186; 99285; J0696; J1580; J1815; J7030; J7050

== ENCOUNTER → 2018-01-23 | Outpatient (CLI) | payer OTHER ==
[2018-01-18 10:26] VITALS: BMI 34.8
[~2018-01-23] MED LIST changes: +INSU100I30 SQ; +SULF-198 PO
== END ==
LOC: LAB 14:24
DX: N30.21 Other chronic cystitis with hematuria (principal); B96.89 Other specified bacterial agents as the cause of diseases classified elsewhere
CPT/HCPCS: 81001; 87088

== ENCOUNTER → 2018-01-26 | Outpatient (CLI) | payer OTHER ==
[2018-01-18 10:26] VITALS: BMI 34.8
[~2018-01-26] MED LIST changes: +LIDOCAINE MPF 1% 5 ML VIAL ONE; +NS(*) 0.9% 10 ML VIAL 0 ML ONE
--- NOTE | 2018-01-26 16:59 | RADIOLOGY IMAGING REPORT ---
FACILITY: [facility] - [place] PATIENT NAME: Ambrose Fagan : 1955 MR: [id number] V: [id number] EXAM DATE: ORDERING PHYSICIAN: VIKAS KELLY TECHNOLOGIST: Location: [facility] Patient: Ambrose Fagan : 1955 Visit/Account:[id number] Date of Sevice: 01/26/2018 Exam type: PICC LINE INSERTION, PICC LINE PLACEMENT History: Need for long-term IV antibiotics Comparison: None. Findings: Informed consent was obtained. The patient's left arm was prepped and draped usual sterile fashion. Local anesthesia was accomplished with 1% lidocaine. Utilizing both sonographic and fluoroscopic gu idance a 39 cm long trimmed 5 Somali double lumen power PICC was inserted via the patent left basilic vein with the distal tip resting in the superior vena cava. Both lumens of the PICC line were flush ed with 5 mL of saline flush. The sonographic images were saved to PACS. The procedure was accompli shed without apparent complication. The fluoroscopy dose area product was 103.03 micro-Dumont per mete r squared IMPRESSION: 1. Successful placement of a 39 cm long trimmed 5 Somali double lumen power PICC inserted via the pa tent left basilic vein with the distal tip resting in superior vena cava Report Dictated By: Cathleen Ontiveros MD at 01/26/2018 4:52 PM Report E-Signed By: Cathleen Ontiveros MD at 01/26/2018 4:55 PM WSN:[email or web address]
--- NOTE | 2018-01-26 17:00 | RADIOLOGY IMAGING REPORT ---
FACILITY: [facility] - [place] PATIENT NAME: Ambrose Fagan : 1955 MR: [id number] V: [id number] EXAM DATE: ORDERING PHYSICIAN: VIKAS KELLY TECHNOLOGIST: Location: [facility] - [place] Patient: Ambrose Fagan : 1955 Visit/Account:[id number] Date of Sevice: 01/26/2018 Exam type: PICC LINE INSERTION, PICC LINE PLACEMENT History: Need for long-term IV antibiotics Comparison: None. Findings: Informed consent was obtained. The patient's left arm was prepped and draped usual sterile fashion. Local anesthesia was accomplished with 1% lidocaine. Utilizing both sonographic and fluoroscopic gu idance a 39 cm long trimmed 5 Ivorian double lumen power PICC was inserted via the patent left basilic vein with the distal tip resting in the superior vena cava. Both lumens of the PICC line were flush ed with 5 mL of saline flush. The sonographic images were saved to PACS. The procedure was accompli shed without apparent complication. The fluoroscopy dose area product was 103.03 micro-Dumont per mete r squared IMPRESSION: 1. Successful placement of a 39 cm long trimmed 5 Ivorian double lumen power PICC inserted via the pa tent left basilic vein with the distal tip resting in superior vena cava Report Dictated By: Cathleen Ontiveros MD at 01/26/2018 4:52 PM Report E-Signed By: Cathleen Ontiveros MD at 01/26/2018 4:55 PM WSN:[email or web address]
== END ==
LOC: US 15:24
DX: Z95.828 Presence of other vascular implants and grafts (principal)
CPT/HCPCS: 36569; 76937; C1751; J2001

== ENCOUNTER → 2018-02-04 | Outpatient (CLI) | payer OTHER ==
[2018-01-18 10:26] VITALS: BMI 34.8
[~2018-02-04] MED LIST changes: +IOPAMIDOL 61% 50 ML INFUS BTL 50 ML ONE; -LIDOCAINE MPF 1% 5 ML VIAL ONE; +NS 0.9% 20 ML SDV 20 ML ONE; -NS(*) 0.9% 10 ML VIAL 0 ML ONE
--- NOTE | 2018-02-04 15:00 | RADIOLOGY IMAGING REPORT ---
[place] [facility] [place]: Ambrose Fagan : 1955 MR: [id number] V: [id number] EXAM DATE: ORDERING PHYSICIAN: VIKAS KELLY TECHNOLOGIST: Location: [facility] Patient: Ambrose Fagan : 1955 Visit/Account:[id number] Date of Sevice: 02/04/2018 Exam type: FLUOROSCOPY History: Check patency of PICC lines, inability to withdraw blood Comparison: None. Findings: Informed consent was obtained. Utilizing sterile technique several milliliters of Isovue 300 were in jected through both ports of patient's double lumen PICC line demonstrating no evidence of obstructio n. There was free flow of contrast in the distal portion of both lumens.. The fluoroscopy dose area product was 109.7 micro-Dumont per meter squared IMPRESSION: 1. Both lumens of the patient's double lumen power PICC are widely patent Report Dictated By: Cathleen Ontiveros MD at 02/04/2018 2:54 PM Report E-Signed By: Cathleen Ontiveros MD at 02/04/2018 2:55 PM WSN:[email or web address]
== END ==
LOC: RAD 10:20
DX: N30.01 Acute cystitis with hematuria (principal)
CPT/HCPCS: 76000; J7050; Q9967

== ENCOUNTER → 2018-02-05 | Outpatient (CLI) | payer OTHER ==
[2018-01-18 10:26] VITALS: BMI 34.8
[~2018-02-05] MED LIST changes: -IOPAMIDOL 61% 50 ML INFUS BTL 50 ML ONE; -NS 0.9% 20 ML SDV 20 ML ONE
== END ==
LOC: LAB 13:39
DX: N30.01 Acute cystitis with hematuria (principal)
CPT/HCPCS: 81001; 87088

== ENCOUNTER 2018-02-09 08:00 | Outpatient (RCR) | payer OTHER ==
[2018-01-18 10:26] VITALS: BMI 34.8
[2018-01-27 08:20] VITALS: BP 106/69
[2018-01-27] MEDS: LINEZOLID 600 MG/300 ML PREMIX 300 ML IVPB PRN ×2 (08:27→20:37)
[2018-01-27] MEDS: NS(*) 0.9% 100 ML BAG 100 ML IVPB PRN (08:28)
[2018-01-27 20:24] VITALS: BP 111/80
[2018-01-27 22:10] VITALS: BP 103/69
[2018-01-28] MEDS: LINEZOLID 600 MG/300 ML PREMIX 300 ML IVPB PRN (08:14)
[2018-01-28] MEDS: NS(*) 0.9% 100 ML BAG 100 ML IVPB PRN (08:14)
[2018-01-28 08:20] VITALS: BP 109/71
[2018-01-29 08:20] VITALS: BP 133/76
[2018-01-29] MEDS: LINEZOLID 600 MG/300 ML PREMIX 300 ML IVPB PRN ×2 (08:59→20:07)
[2018-01-29] MEDS: NS(*) 0.9% 100 ML BAG 100 ML IVPB PRN (08:59)
[2018-01-29 10:06] VITALS: BP 119/75
[2018-01-29 20:05] VITALS: BP 122/76
[2018-01-29 21:12] VITALS: BP 123/75
[2018-01-30 08:20] VITALS: BP 113/72
[2018-01-30] MEDS: LINEZOLID 600 MG/300 ML PREMIX 300 ML IVPB PRN ×2 (08:30→20:31)
[2018-01-30] MEDS: NS(*) 0.9% 100 ML BAG 100 ML IVPB PRN (08:30)
[2018-01-30 09:34] VITALS: BP 117/75
[2018-01-30 20:13] VITALS: BP 130/76
[2018-01-30 21:30] VITALS: BP 131/81
[2018-01-31 07:57] VITALS: BP 130/88
[2018-01-31] MEDS: LINEZOLID 600 MG/300 ML PREMIX 300 ML IVPB PRN ×2 (07:59→20:16)
[2018-01-31] MEDS: NS(*) 0.9% 100 ML BAG 100 ML IVPB PRN ×2 (08:00→20:16)
[2018-01-31 09:15] VITALS: BP 123/77
[2018-01-31 20:17] VITALS: BP 126/68
[2018-02-01] MEDS: LINEZOLID 600 MG/300 ML PREMIX 300 ML IVPB PRN ×2 (08:03→20:10)
[2018-02-01] MEDS: NS(*) 0.9% 100 ML BAG 100 ML IVPB PRN (08:03)
[2018-02-01 08:04] VITALS: BP 139/83
[2018-02-01 20:05] VITALS: BP 126/71
[2018-02-01 21:35] VITALS: BP 140/81
[2018-02-02] MEDS: NS(*) 0.9% 100 ML BAG 100 ML IVPB PRN (08:16)
[2018-02-02 08:17] VITALS: BP 119/78
[2018-02-02] MEDS: LINEZOLID 600 MG/300 ML PREMIX 300 ML IVPB PRN ×2 (08:30→20:07)
[2018-02-02 20:04] VITALS: BP 133/99
[2018-02-02 21:19] VITALS: BP 115/75
[2018-02-03] MEDS: NS(*) 0.9% 100 ML BAG 100 ML IVPB PRN (08:23)
[2018-02-03] MEDS: LINEZOLID 600 MG/300 ML PREMIX 300 ML IVPB PRN ×2 (08:24→20:20)
[2018-02-03 08:39] VITALS: BP 124/73
[2018-02-03 20:17] VITALS: BP 118/68
[2018-02-03 21:27] VITALS: BP 112/72
[2018-02-04] MEDS: NS(*) 0.9% 100 ML BAG 100 ML IVPB PRN ×2 (08:27→20:14)
[2018-02-04] MEDS: LINEZOLID 600 MG/300 ML PREMIX 300 ML IVPB PRN ×2 (08:28→20:14)
[2018-02-04 08:29] VITALS: BP 122/85
[2018-02-04 20:12] VITALS: BP 135/90
[2018-02-04 21:26] VITALS: BP 118/77
[2018-02-05 08:23] VITALS: BP 137/86
[2018-02-05] MEDS: NS(*) 0.9% 100 ML BAG 100 ML IVPB PRN (08:44)
[2018-02-05] MEDS: LINEZOLID 600 MG/300 ML PREMIX 300 ML IVPB PRN ×2 (08:44→20:15)
[2018-02-05 09:52] VITALS: BP 134/78
[2018-02-05 20:04] VITALS: BP 146/79
[2018-02-05 21:27] VITALS: BP 121/80
[2018-02-06] MEDS: NS(*) 0.9% 100 ML BAG 100 ML IVPB PRN (08:05)
[2018-02-06] MEDS: LINEZOLID 600 MG/300 ML PREMIX 300 ML IVPB PRN ×2 (08:05→19:59)
[2018-02-06 08:09] VITALS: BP 122/76
[2018-02-06 09:07] VITALS: BP 123/77
[2018-02-06 19:55] VITALS: BP 135/80
[2018-02-06 21:27] VITALS: BP 125/76
[2018-02-07] MEDS: NS(*) 0.9% 100 ML BAG 100 ML IVPB PRN (08:14)
[2018-02-07] MEDS: LINEZOLID 600 MG/300 ML PREMIX 300 ML IVPB PRN ×2 (08:14→20:25)
[2018-02-07 08:16] VITALS: BP 113/82
[2018-02-07 09:12] VITALS: BP 121/78
[2018-02-07 20:16] VITALS: BP 128/85
[2018-02-07 21:24] VITALS: BP 135/78
[2018-02-08] MEDS: LINEZOLID 600 MG/300 ML PREMIX 300 ML IVPB PRN ×2 (08:37→20:04)
[2018-02-08 08:38] VITALS: BP 113/78
[2018-02-08 20:02] VITALS: BP 129/76
[2018-02-08 21:09] VITALS: BP 117/83
[~2018-02-09 08:00] MED LIST changes: +ALTEPLASE RECOMB 2 MG VIAL IVP PRN; +DEXTROSE 5%(*) 100 ML BAG 100 ML IVPB PRN; +NS(*) 0.9% 250 ML BAG 250 ML ONE; +NS(*) 0.9% 500 ML BAG 500 ML IV PRN; +WATER FOR INJ,STERILE 20 ML IVP PRN
[2018-02-09] MEDS: NS(*) 0.9% 100 ML BAG 100 ML IVPB PRN (08:11)
[2018-02-09] MEDS: LINEZOLID 600 MG/300 ML PREMIX 300 ML IVPB PRN ×2 (08:11→20:25)
[2018-02-09 08:12] VITALS: BP 124/83
[2018-02-09 09:12] VITALS: BP 121/87
[2018-02-09 20:30] VITALS: BP 119/64
[2018-02-09 21:35] VITALS: BP 110/58
== END 2018-02-10 15:42 | disposition home or self-care (01) ==
LOC: ONC 08:00
DX: N30.21 Other chronic cystitis with hematuria (principal)
CPT/HCPCS: 36416; 81001; 82948; 87088; 96365; 96366; 96375; J1642; J2020; J2997; J7050; 96374

== ENCOUNTER → 2018-02-16 | Outpatient (CLI) | payer OTHER ==
[2018-01-18 10:26] VITALS: BMI 34.8
[~2018-02-16] MED LIST changes: -ALTEPLASE RECOMB 2 MG VIAL IVP PRN; -DEXTROSE 5%(*) 100 ML BAG 100 ML IVPB PRN; -NS(*) 0.9% 250 ML BAG 250 ML ONE; -NS(*) 0.9% 500 ML BAG 500 ML IV PRN; -WATER FOR INJ,STERILE 20 ML IVP PRN
== END ==
LOC: LAB 15:22
DX: N30.01 Acute cystitis with hematuria (principal)
CPT/HCPCS: 81001; 87088

== ENCOUNTER → 2018-03-02 | Outpatient (CLI) | payer OTHER ==
[2018-01-18 10:26] VITALS: BMI 34.8
[~2018-03-02] MED LIST changes: -CLON-303 PO; +CLON-304 PO; +IBUP-136 PO; -IBUP200C71 PO
== END ==
LOC: AUD 14:30
PROVIDERS: ATTEND Family Medicine
DX: H91.93 Unspecified hearing loss, bilateral (principal)
CPT/HCPCS: 92552

== ENCOUNTER → 2018-10-15 | Outpatient (CLI) | payer OTHER ==
[2018-01-18 10:26] VITALS: BMI 34.8
[~2018-10-15] MED LIST changes: -CLON-304 PO; +CLON-333 PO; -HYDR-4308 PO; -HYDR-4309 PO; +HYDR-653 PO; +HYDR-654 PO; -METF-421 PO; +METF-452 PO
== END ==
LOC: RESP 20:38
PROVIDERS: ATTEND Family Medicine
DX: G47.33 Obstructive sleep apnea (adult) (pediatric) (principal); G47.36 Sleep related hypoventilation in conditions classified elsewhere

== ENCOUNTER → 2019-03-21 | Outpatient (CLI) | payer OTHER ==
[2018-01-18 10:26] VITALS: BMI 34.8
--- NOTE | 2019-03-21 16:47 | RADIOLOGY IMAGING REPORT ---
FACILITY: [facility] - [place] PATIENT NAME: Ambrose Fagan : 1955 MR: [id number] V: [id number] EXAM DATE: ORDERING PHYSICIAN: STEPHANIE RUDOLPH TECHNOLOGIST: Location: [facility] - [place], [place] Patient: Ambrose Fagan : 1955 Visit/Account:[id number] Date of Sevice: 03/21/[address] scan without contrast HISTORY: Headache, vision changes, photophobia COMPARISONS: None TECHNIQUE: Non-contrast head CT was performed with sagittal and coronal reformations. One of the following dose optimization techniques was utilized in the performance of this exam: autom ated exposure control; adjustment of the mA and/or kV according to patient size; or use of iterative reconstruction technique. Specific details can be referenced in the facility's radiology CT exam ope rational policy. FINDINGS: There is no intracranial hemorrhage, hydrocephalus or midline shift. The basal cisterns, pardo-white differentiation, and convexity sulci are maintained. Normal orbital soft tissues. Minimal to mild p atchy white matter hypoattenuation. The mastoid air cells are clear. The paranasal sinuses are clear. The osseous structures are normal . IMPRESSION: No acute intracranial abnormality. Minimal to mild chronic small vessel ischemic change. Report Dictated By: Agustin Pickering MD at 03/21/2019 4:37 PM Report E-Signed By: Agustin Pickering MD at 03/21/2019 4:40 PM WSN:[email or web address]
== END ==
LOC: CT 08:14
PROVIDERS: ATTEND Family Medicine
DX: R51 Headache (principal); H53.9 Unspecified visual disturbance; H53.143 Visual discomfort, bilateral; R41.82 Altered mental status, unspecified
CPT/HCPCS: 70450